=== PATIENT | female | born 1950 | race Caucasian/White ===

== ENCOUNTER 2018-12-17 21:56 | Observation (INO) | payer BC, OTHER ==
[~2018-12-17] VITALS: Ht 157.5 cm; Wt 81.8 kg
[2018-12-17 22:44] LABS: WHITE BLOOD COUNT 11.6 10^3/uL (4.3-11.0)
[2018-12-17 22:45] LABS: BASOPHILS # (AUTO) 0.1 10^3/uL (0.0-0.1); BASOPHILS % (AUTO) 0 % (0-10); EOSINOPHILS # (AUTO) 0.2 10^3/uL (0.0-0.3); EOSINOPHILS % (AUTO) 2 % (0-10); HEMATOCRIT 41 % (35-52); HEMOGLOBIN 13.8 G/DL (11.5-16.0); LYMPHOCYTES # (AUTO) 1.4 X 10^3 (1.0-4.0); LYMPHOCYTES % (AUTO) 12 % (12-44); MEAN CORPUSCULAR HEMOGLOBIN 31 PG (25-34); MEAN CORPUSCULAR HGB CONC 33 G/DL (32-36); MEAN CORPUSCULAR VOLUME 93 FL (80-99); MEAN PLATELET VOLUME 9.9 FL (7.4-10.4); MONOCYTES % (AUTO) 8 % (0-12); NEUTROPHILS # (AUTO) 8.9 X 10^3 (1.8-7.8); NEUTROPHILS % (AUTO) 77 % (42-75); PLATELET COUNT 214 10^3/uL (130-400); RED CELL DISTRIBUTION WIDTH 12.8 % (10.0-14.5)
[2018-12-17] MEDS ORDERED: KETOROLAC 30 MG/ML VIAL IVP ONE (22:45)
--- NOTE | 2018-12-17 22:46 | ED General ---
General Chief Complaint: General Problems/Pain Stated Complaint: GENERAL PAIN Nursing Triage Note: pt states right sided posterior rib pain with soa, had similar symptoms in 2006 and was diagnosed with pe. Nursing Sepsis Screen: No Definite Risk History of Present Illness Date Seen by Provider: Dec 17, 2018 Time Seen by Provider: 22:41 Initial Comments 68 yo female relates onset earlier this evening of right back pain pleuritic SOB pain radiates throughout R shoulder arnoldo-thorax etc. states identical to sx's when diagnosed with PE in 2000 took coumadin for 6 month and then has been on baby asa ever since has not been immobilized, not on hormones has been active had a YBARRA felt fatigued and cold 2d ago and hasn't felt well since ? pt claims subjective fever, denies cough denies any left chest pain no palpitations no syncope no abd pain no N V or D vitals normal O2 sats good but significant pleuritic pain Allergies and Home Medications Allergies Coded Allergies: Sulfa (Sulfonamide Antibiotics) (Verified Allergy, Unknown, 12/17/18) Patient Home Medication List Home Medication List Reviewed: Yes Review of Systems Review of Systems Constitutional: fever (subjective) EENTM: no symptoms reported Respiratory: short of breath Cardiovascular: chest pain Gastrointestinal: no symptoms reported Genitourinary: no symptoms reported Past Tjywyct-Iuxfuh-Oixplx Hx Patient Social History Alcohol Use: Denies Use Recreational Drug Use: No Smoking Status: Never a Smoker 2nd Hand Smoke Exposure: No Recent Foreign Travel: No Contact w/Someone Who Travel: No Recent Infectious Disease Expo: No Recent Hopitalizations: No Physical Abuse: No Sexual Abuse: No Mistreated: No Fear: No Seasonal Allergies Seasonal Allergies: No Past Medical History Surgeries: Yes Tubal Ligation Respiratory: Yes Pulmonary Embolism Cardiac: Yes Hypertension Neurological: Yes Genitourinary: No Gastrointestinal: Yes Gastroesophageal Reflux, Hemorrhoids Musculoskeletal: No Endocrine: No HEENT: No Cancer: No Psychosocial: No Integumentary: No Blood Disorders: No Physical Exam Vital Signs Vital Signs - First Documented 12/17/18 22:10 Temp 37.6 Pulse 84 Resp 18 B/P (MAP) 151/63 (92) Pulse Ox 97 O2 Delivery Room Air Capillary Refill : Less Than 3 Seconds Height, Weight, BMI Height: '" Weight: lbs. oz. kg; 32.00 BMI Method: General Appearance: Mild Distress (pleuritic chest pain) Eyes: Bilateral Eye PERRL, Bilateral Eye EOMI HEENT: Pharynx Normal, Moist Mucous Membranes Neck: Non Tender, Supple Respiratory: Lungs Clear, Normal Breath Sounds Cardiovascular: Regular Rate, Rhythm Gastrointestinal: Normal Bowel Sounds, Non Tender, Soft Extremity: No No Pedal Edema, No Calf Tenderness Progress/Results/Core Measures Suspected Sepsis Recent Fever Within 48 Hours: No Infection Criteria Present: None New/Unexplained Altered Menta: No Sepsis Screen: No Definite Risk SIRS Temperature: Pulse: 84 Respiratory Rate: 18 Laboratory Tests 12/17/18 22:30: White Blood Count 11.6H Blood Pressure 151 /63 Mean: 92 Laboratory Tests 12/17/18 22:30: Creatinine 1.03, Platelet Count 214, Total Bilirubin 0.3 Results/Orders Lab Results Laboratory Tests Test 12/17/18 22:30 Range/Units White Blood Count 11.6 H 4.3-11.0 10^3/uL Red Blood Count 4.46 4.35-5.85 10^6/uL Hemoglobin 13.8 11.5-16.0 G/DL Hematocrit 41 35-52 % Mean Corpuscular Volume 93 80-99 FL Mean Corpuscular Hemoglobin 31 25-34 PG Mean Corpuscular Hemoglobin Concent 33 32-36 G/DL Red Cell Distribution Width 12.8 10.0-14.5 % Platelet Count 214 130-400 10^3/uL Mean Platelet Volume 9.9 7.4-10.4 FL Neutrophils (%) (Auto) 77 H 42-75 % Lymphocytes (%) (Auto) 12 12-44 % Monocytes (%) (Auto) 8 0-12 % Eosinophils (%) (Auto) 2 0-10 % Basophils (%) (Auto) 0 0-10 % Neutrophils # (Auto) 8.9 H 1.8-7.8 X 10^3 Lymphocytes # (Auto) 1.4 1.0-4.0 X 10^3 Monocytes # (Auto) 1.0 0.0-1.0 X 10^3 Eosinophils # (Auto) 0.2 0.0-0.3 10^3/uL Basophils # (Auto) 0.1 0.0-0.1 10^3/uL D-Dimer 2.25 H 0.00-0.49 UG/ML Sodium Level 138 135-145 MMOL/L Potassium Level 4.4 3.6-5.0 MMOL/L Chloride Level 104 98-107 MMOL/L Carbon Dioxide Level 25 21-32 MMOL/L Anion Gap 9 5-14 MMOL/L Blood Urea Nitrogen 20 H 7-18 MG/DL Creatinine 1.03 0.60-1.30 MG/DL Estimat Glomerular Filtration Rate 53 BUN/Creatinine Ratio 19 Glucose Level 139 H 70-105 MG/DL Calcium Level 9.4 8.5-10.1 MG/DL Corrected Calcium 9.3 8.5-10.1 MG/DL Total Bilirubin 0.3 0.1-1.0 MG/DL Aspartate Amino Transf (AST/SGOT) 23 5-34 U/L Alanine Aminotransferase (ALT/SGPT) 21 0-55 U/L Alkaline Phosphatase 64 40-136 U/L Troponin I < 0.30 <0.30 NG/ML Total Protein 7.2 6.4-8.2 GM/DL Albumin 4.1 3.2-4.5 GM/DL My Orders Orders - JOANNE AZUL MD Ekg Tracing (12/17/18 22:19) Iv Heplock-Insert (Order) (12/17/18 22:19) Monitor-Rhythm Ecg Trace Only (12/17/18 22:19) Chest 1 View Ap/Pa Only (12/17/18 22:19) Cbc With Automated Diff (12/17/18 22:19) Comprehensive Metabolic Panel (12/17/18 22:19) Fibrin Degradation Products (12/17/18 22:19) Troponin I (12/17/18 22:19) Ketorolac Injection (Toradol Injection) (12/17/18 22:45) Enoxaparin Injection (Lovenox Injection) (12/17/18 23:30) Ct Angio Chest W (12/17/18 23:26) Iohexol Injection (Omnipaque 350 Mg/Ml 1 (12/17/18 23:30) Received Contrast (Hold Metformin- Contr (12/17/18 23:30) Sodium Chloride Flush (Catheter Flush Sy (12/17/18 23:30) Ns (Ivpb) (Sodium Chloride 0.9% Ivpb Bag (12/17/18 23:30) Medications Given in ED Current Medications Medications Dose Ordered Sig/Ellen Route Start Time Stop Time Status Last Admin Dose Admin Enoxaparin Sodium 80 mg ONCE ONCE SC 12/17/18 23:30 12/17/18 23:31 DC 12/17/18 23:49 80 MG Iohexol 150 ml ONCE ONCE IV 12/17/18 23:30 12/17/18 23:32 DC 12/17/18 23:55 125 ML Ketorolac Tromethamine 30 mg ONCE ONCE IVP 12/17/18 22:45 12/17/18 22:46 DC 12/17/18 23:05 30 MG Sodium Chloride 10 ml NEEDED PRN IV 12/17/18 23:30 12/17/18 23:55 10 ML Sodium Chloride 100 ml ONCE ONCE IV 12/17/18 23:30 12/17/18 23:32 DC 12/17/18 23:55 80 ML Vital Signs/I&O 12/17/18 22:10 Temp 37.6 Pulse 84 Resp 18 B/P (MAP) 151/63 (92) Pulse Ox 97 O2 Delivery Room Air Capillary Refill : Less Than 3 Seconds Blood Pressure Mean: 92 ECG Comment EKG sinus @79 no acute changes Departure Communication (Admissions) Time/Spoke to Admitting Phy: 00:46 acute PE will admit obs med surg Dr. Segovia O2 sats good pain much better after toradol has had 80 of lovenox subq Impression Primary Impression: Pulmonary embolism Qualified Codes: I26.99 - Other pulmonary embolism without acute cor pulmonale Disposition: ADMITTED INPATIENT Condition: Stable Admissions Decision to Admit Reason: Admit from ER (General) Decision to Admit/Date: Dec 18, 2018 Time/Decision to Admit Time: 00:50 Departure-Patient Inst. Referrals: NO,LOCAL PHYSICIAN (PCP/Family) Primary Care Physician JOANNE AZUL MD Dec 17, 2018 22:46
[2018-12-17 23:02] LABS: CHLORIDE 104 MMOL/L (98-107)
[2018-12-17 23:13] LABS: BILIRUBIN,TOTAL 0.3 MG/DL (0.1-1.0); CALCIUM 9.4 MG/DL (8.5-10.1); CARBON DIOXIDE 25 MMOL/L (21-32); GLUCOSE 139 MG/DL (70-105); POTASSIUM 4.4 MMOL/L (3.6-5.0); SODIUM 138 MMOL/L (135-145); TOTAL PROTEIN 7.2 GM/DL (6.4-8.2)
[2018-12-17 23:15] LABS: ALANINE AMINOTRANSFERASE 21 U/L (0-55); ALBUMIN 4.1 GM/DL (3.2-4.5); ALKALINE PHOSPHATASE 64 U/L (40-136); BUN/CREATININE RATIO 19; CREATININE SERUM 1.03 MG/DL (0.60-1.30); GFR ESTIMATED 53
[2018-12-17] MEDS ORDERED: NS 100 ML (IVPB) BAG IV ONE (23:30)
[2018-12-17] MEDS ORDERED: CATHETER FLUSH 10 ML SYR IV PRN (23:30)
[2018-12-17] MEDS ORDERED: ENOXAPARIN 80 MG/0.8 ML (LOVENOX) SYR SC ONE (23:30)
[2018-12-17] MEDS ORDERED: HOLD METFORMIN - RECEIVED CONTRAST 20 ML VIAL IV SCH (23:30)
[2018-12-17] MEDS ORDERED: IOHEXOL 350 MG/ML 150 ML (OMNIPAQUE 350) VIAL IV ONE (23:30)
[2018-12-18 02:20] VITALS: BP 159/96
[2018-12-18 02:25] VITALS: BP 159/96
[2018-12-18 04:00] VITALS: BP 152/72
[2018-12-18] MEDS ORDERED: NS IV 1000 ML 1,000 ML IV SCH (04:15)
[2018-12-18] MEDS ORDERED: KETOROLAC 15 MG/ML VIAL IVP PRN (04:15)
--- NOTE | 2018-12-18 06:53 | Diagnostic Imaging Report ---
Indication: Pain, shortness of air Comparison: None available Technique: Single radiograph of the chest dated 12/17/2018. Findings: The cardiac silhouette and pulmonary vasculature are within normal limits. The lungs are clear. No significant pleural effusion or pneumothorax. No acute osseous abnormality. Impression: No acute cardiopulmonary abnormality. Dictated by: Dictated on workstation # [id number]
[2018-12-18 08:00] VITALS: BP 139/84
--- NOTE | 2018-12-18 09:34 | Diagnostic Imaging Report ---
PROCEDURE: CT angiography of the chest with contrast. TECHNIQUE: Multiple contiguous axial images were obtained through the chest after uneventful bolus administration of intravenous contrast. 3D reconstructed CTA MIP acquisitions were also performed. Auto Exposure Controls were utilized during the CT exam to meet ALARA standards for radiation dose reduction. INDICATION: Rib pain, shortness of air Comparison: Radiographs from same day Findings: No significant adenopathy within the chest. No aneurysmal dilatation or dissection of the thoracic aorta. Tiny hiatal hernia. The heart is within normal limits in size. No pericardial effusion. No pleural effusion. No pneumothorax. Minimal left basilar scarring and/or atelectasis. Patchy groundglass opacities are noted within the right lower lobe. Evaluation for pulmonary emboli is limited secondary to motion. However, internal filling defects are identified within segmental and subsegmental branches of the right lower lobe pulmonary artery. No left-sided pulmonary emboli within limits of the examination. Punctate gallstone. Visualized upper abdomen is otherwise unremarkable. No acute osseous abnormality. Impression: Segmental and subsegmental pulmonary emboli within right lower lobe pulmonary arteries. Groundglass opacities within the right lung base. Although this may relate to underlying pneumonitis, given the pulmonary emboli within this distribution, this may relate to an early developing pulmonary infarction. Small hiatal hernia. I agree with preliminary report that there are pulmonary emboli, however preliminary report did not mention the possibility of an underlying developing pulmonary infarction. Report was faxed to [facility] by sherri at 9:40 am. POP Gibson, was also notified. Dictated by: Dictated on workstation # [id number]
[2018-12-18] MEDS ORDERED: RIVA15TA PO ×2 (10:53→12:05)
[2018-12-18] MEDS ORDERED: RIVA20TA PO ×2 (10:53→12:05)
--- NOTE | 2018-12-18 10:57 | Discharge Summary ---
Discharge Summary Hospital Course Problems/Dx: (1) Pulmonary embolism Status: Acute Qualifiers: Qualified Codes: I26.99 - Other pulmonary embolism without acute cor pulmonale Final Diagnosis: Acute pulmonary embolism Hospital Course Date of Admission: Dec 18, 2018 at 01:09 Admission Diagnosis : Acute pulmonary embolism Family Physician/Provider: FinaLocal Physician Date of Discharge: 12/18/18 Discharge Diagnosis: Acute pulmonary embolism Hospital Course: 68-year-old female with past medical history of pulmonary embolism almost 20 years ago and not currently on anticoagulation presented with right-sided pleuritic chest pain and was found to have acute pulmonary embolism. She was given 1 dose of IV Lovenox and was then transitioned to Xarelto. She will take Xarelto 15 mg twice daily for 3 weeks and then transition to Xarelto 20 mg daily. She does not have a primary care physician in the [facility] as she recently moved from [place]. She reports being up-to-date on all age appropriate cancer screening, but will reassess with her new primary care physician. Labs and Pending Lab Test: Laboratory Tests 12/17/18 22:30: White Blood Count 11.6H, Red Blood Count 4.46, Hemoglobin 13.8, Hematocrit 41, Mean Corpuscular Volume 93, Mean Corpuscular Hemoglobin 31, Mean Corpuscular Hemoglobin Concent 33, Red Cell Distribution Width 12.8, Platelet Count 214, Mean Platelet Volume 9.9, Neutrophils (%) (Auto) 77H, Lymphocytes (%) (Auto) 12, Monocytes (%) (Auto) 8, Eosinophils (%) (Auto) 2, Basophils (%) (Auto) 0, Neutrophils # (Auto) 8.9H, Lymphocytes # (Auto) 1.4, Monocytes # (Auto) 1.0, Eosinophils # (Auto) 0.2, Basophils # (Auto) 0.1, D-Dimer 2.25H, Sodium Level 138, Potassium Level 4.4, Chloride Level 104, Carbon Dioxide Level 25, Anion Gap 9, Blood Urea Nitrogen 20H, Creatinine 1.03, Estimat Glomerular Filtration Rate 53, BUN/Creatinine Ratio 19, Glucose Level 139H, Calcium Level 9.4, Corrected Calcium 9.3, Total Bilirubin 0.3, Aspartate Amino Transf (AST/SGOT) 23, Alanine Aminotransferase (ALT/SGPT) 21, Alkaline Phosphatase 64, Troponin I < 0.30, Total Protein 7.2, Albumin 4.1 Home Meds Active Xarelto (Rivaroxaban) 20 Mg Tablet 20 Mg PO DAILY 30 Days Xarelto (Rivaroxaban) 15 Mg Tablet 15 Mg PO BID 21 Days Assessment/Pt Instructions Take medications as prescribed. Establish care with new local primary care physician. Discharge Instructions Discharge Diet: No Restrictions Activity as Tolerated: Yes Discharge Physical Examination General Appearance: Alert, Oriented X3 HEENT: Atraumatic, EOMI Respiratory: Clear to Auscultation, Normal Air Movement Cardiovascular: Regular Rate, No Murmurs Abdominal: Normal Bowel Sounds, Soft, No Tenderness Extremities: No Edema, No Tenderness/Swelling Skin: No Rashes, No Breakdown Neuro: Normal Speech, Normal Tone Psych/Mental Status: Mental Status NL, Mood NL Allergies: Coded Allergies: Sulfa (Sulfonamide Antibiotics) (Verified Allergy, Unknown, 12/17/18) Discharge Summary Date of Admission Dec 18, 2018 at 01:09 Date of Discharge Discharge Date: Dec 18, 2018 Discharge Time: 10:56 Admission Diagnosis Acute pulmonary embolism Discharge Diagnosis (1) Pulmonary embolism Status: Acute Qualifiers: Qualified Codes: I26.99 - Other pulmonary embolism without acute cor pulmonale Clinical Quality Measures DVT/VTE Risk/Contraindication: Risk Factor Score Per Nursin RFS Level Per Nursing on Admit: 4+=Very High RUFUS CABALLERO MD Dec 18, 2018 10:57
[2018-12-18] MEDS ORDERED: OXYC-471 PO (12:05)
[2018-12-19] MEDS ORDERED: AMLO2.5T4 PO (10:01)
[2018-12-19] MEDS ORDERED: ASPI-983 PO (10:01)
[2018-12-19] MEDS ORDERED: RANI150T11 PO (10:01)
--- NOTE | 2018-12-19 13:28 | Diagnostic Imaging Report ---
PROCEDURE: US Venous Lower Ext Gee. INDICATION: Pulmonary embolism. EXAMINATIONS: Both grayscale and color Doppler imaging of the deep veins of the lower extremities were performed with waveform analysis. FINDINGS: There is no intraluminal filling defect. Normal continuous flow is seen throughout the deep venous systems of both legs, and there is normal response to augmentation. The deep veins compress normally. IMPRESSION: No ultrasound evidence of deep venous thrombosis in either lower extremity. Dictated by: Dictated on workstation # [id number]
[2018-12-19] MEDS ORDERED: RIVA15TA PO (14:06)
[2018-12-19] MEDS ORDERED: RIVA20TA PO (14:06)
== END 2018-12-18 10:45 | disposition home or self-care (01) ==
LOC: ER FS 21:58 → 4TH 21:59 → UNDOADMOB 12-18 01:09 → 4TH 12-18 01:09 → UNDODISOB 12-18 12:45
PROVIDERS: ADMIT Internal Medicine; ATTEND Internal Medicine
DX: I26.99 Other pulmonary embolism without acute cor pulmonale (principal); I10 Essential (primary) hypertension; K21.9 Gastro-esophageal reflux disease without esophagitis; Z88.2 Allergy status to sulfonamides; Z98.51 Tubal ligation status
CPT/HCPCS: 36415; 71045; 71275; 80053; 84484; 85025; 85379; 93005; 93970; 94760; 96372; 96374; G0378

== ENCOUNTER 2018-12-18 18:30 | Inpatient (IN) | payer BC ==
[~2018-12-18] VITALS: Ht 157.4 cm; Wt 83.5 kg
[~2018-12-18 18:30] MED LIST: OXYC-471 PO; RIVA15TA PO; RIVA20TA PO; fentaNYL INJECTION 100 MCG/2 ML AMP ONE
[2018-12-18] MEDS ORDERED: fentaNYL INJECTION 100 MCG/2 ML AMP IVP ONE (18:45)
[2018-12-18] MEDS ORDERED: PIPERACILLIN/TAZOBACTAM (BULK) 4.5 GM in NS (IVPB) 100 ML IV ONE (19:00)
[2018-12-18] MEDS ORDERED: VANCOMYCIN INJECTION 1,000 MG in NS (IVPB) 250 ML IV SCH (19:00)
--- NOTE | 2018-12-18 19:02 | Diagnostic Imaging Report ---
INDICATION: Pulmonary embolism and dyspnea. EXAMINATION: Upright AP view of the chest was obtained. COMPARISON: Study of one day earlier. FINDINGS: There is suboptimal inspiration with development of basilar atelectasis, greater on the right. No pneumothorax is seen. There is no evidence of focal consolidation. IMPRESSION: Developing basilar atelectasis which is greater on the right. Dictated by: Dictated on workstation # [id number]
[2018-12-18 19:04] LABS: HEMATOCRIT 40 % (35-52); HEMOGLOBIN 13.5 G/DL (11.5-16.0); MEAN CORPUSCULAR HEMOGLOBIN 31 PG (25-34); MEAN CORPUSCULAR HGB CONC 34 G/DL (32-36); MEAN CORPUSCULAR VOLUME 93 FL (80-99); MEAN PLATELET VOLUME 10.5 FL (7.4-10.4); PLATELET COUNT 216 10^3/uL (130-400); RED CELL DISTRIBUTION WIDTH 13.2 % (10.0-14.5); WHITE BLOOD COUNT 14.7 10^3/uL (4.3-11.0)
[2018-12-18 19:05] LABS: BASOPHILS # (AUTO) 0.1 10^3/uL (0.0-0.1); BASOPHILS % (AUTO) 0 % (0-10); EOSINOPHILS # (AUTO) 0.1 10^3/uL (0.0-0.3); EOSINOPHILS % (AUTO) 1 % (0-10); LYMPHOCYTES # (AUTO) 1.7 X 10^3 (1.0-4.0); LYMPHOCYTES % (AUTO) 11 % (12-44); MONOCYTES % (AUTO) 7 % (0-12); NEUTROPHILS # (AUTO) 11.8 X 10^3 (1.8-7.8); NEUTROPHILS % (AUTO) 80 % (42-75)
--- NOTE | 2018-12-18 19:06 | ED Respiratory ---
General Chief Complaint: Respiratory Problems Stated Complaint: SOA,CHEST PAIN Nursing Triage Note: Brought in by ambulance. Was diagnosed with PE last night and admitted to hospital. Got home today at 3 pm and has been having increasing pain and shortness of breath since arrival home. Is rating pain at 100/10 on the R lower side of chest and is described as stabbing. This is the same location of the pain as last night but just worse. History of Present Illness Date Seen by Provider: Dec 18, 2018 Time Seen by Provider: 19:01 Initial Comments The patient is a 68-year-old female with a history of hypertension and very recent diagnosis of acute segmental and subsegmental right-sided pulmonary embolism, released from [facility] earlier today on Xarelto. The patient returns via EMS with complaints of severely worsened right-sided lower lateral pleuritic chest wall discomfort which she states is the same pain that she had yesterday prior to diagnoses of her PE, just much worse. Patient was saturating about 92% on room air and is at 97% on 2 L. She is speaking comfortably in full sentences but is in some distress from chest discomfort. She is also noted to be febrile. No associated nausea or vomiting, diaphoresis, abdominal pain, flank pain, back pain, dysuria or hematuria, changes in bowel habits. Allergies and Home Medications Allergies Coded Allergies: Sulfa (Sulfonamide Antibiotics) (Verified Allergy, Unknown, 12/17/18) Home Medications Oxycodone HCl/Acetaminophen 1 Each Tablet, 1 EACH PO Q4H PRN for PAIN-SEVERE Prescribed by: RUFUS CABALLERO on 12/18/18 1205 Rivaroxaban 15 Mg Tablet, 15 MG PO BID Prescribed by: RUFUS CABALLERO on 12/18/18 1205 Rivaroxaban 20 Mg Tablet, 20 MG PO DAILY Prescribed by: RUFUS CABALLERO on 12/18/18 1205 Patient Home Medication List Home Medication List Reviewed: Yes Review of Systems Review of Systems Constitutional: see HPI All Other Systems Reviewed Negative Unless Noted: Yes Past Vpcoivw-Ryjmuj-Hasmtl Hx Past Med/Social Hx: Reviewed Nursing Past Med/Soc Hx Patient Social History Alcohol Use: Denies Use Recreational Drug Use: No 2nd Hand Smoke Exposure: No Recent Foreign Travel: No Contact w/Someone Who Travel: No Recent Infectious Disease Expo: No Recent Hopitalizations: No Physical Abuse: No Sexual Abuse: No Mistreated: No Fear: No Immunizations Up To Date Date of Pneumonia Vaccine: Jan 26, 2018 Seasonal Allergies Seasonal Allergies: No Past Medical History Surgeries: Yes Tubal Ligation Respiratory: Yes Pulmonary Embolism Currently Using CPAP: No Currently Using BIPAP: No Cardiac: Yes Hypertension Neurological: No Genitourinary: No Gastrointestinal: Yes Gastroesophageal Reflux, Hemorrhoids Musculoskeletal: No Endocrine: No HEENT: No Cancer: No Psychosocial: No Integumentary: No Blood Disorders: No Family Medical History Reviewed Nursing Family Hx Cardiovascular disease 19 FATHER, Onset:50's - 60 G8 BROTHER, Onset:40's - 50 Cataracts 19 FATHER Colon cancer 19 MOTHER, Onset:60 years & older G8 SISTER, Onset:60 years & older Glaucoma 19 FATHER, Onset:50's - 60 G8 BROTHER, Onset:60 years & older Physical Exam Vital Signs - First Documented 12/18/18 18:33 Temp 38.5 Pulse 98 Resp 20 B/P (MAP) 127/76 (93) Pulse Ox 98 Capillary Refill : Less Than 3 Seconds Height: '" Weight: lbs. oz. kg; 32.00 BMI Method: General Appearance: no apparent distress This is an older female appearing nontoxic and in no significant distress. She is intermittently tearful and holding her right lower lateral chest. Head is normocephalic and atraumatic. Neck is supple and nontender. Oropharynx is moist. Lungs are clear to auscultation at all stations. There is a normal S1 and S2 without rubs or gallops and capillary refill is appropriate, l ess 2 seconds globally. Abdomen is soft, nontender nondistended. Skin is warm and dry without cyanosis, clubbing or edema. Psychiatrically, the patient demonstrates appropriate mood and affect and is alert. Focused Exam Lactate Level 12/18/18 18:55: Lactic Acid Level 0.99 Lactic Acid Level Laboratory Tests Test 12/18/18 18:55 Lactic Acid Level 0.99 MMOL/L (0.50-2.00) Progress/Results/Core Measures Suspected Sepsis Recent Fever Within 48 Hours: No Infection Criteria Present: None New/Unexplained Altered Menta: No Sepsis Screen: No Definite Risk SIRS Temperature: Pulse: 98 Respiratory Rate: 20 Laboratory Tests 12/18/18 18:45: White Blood Count 14.7H Blood Pressure 127 /76 Mean: 93 12/18/18 18:55: Lactic Acid Level 0.99 Laboratory Tests 12/18/18 18:45: INR Comment 1.0, Platelet Count 216 Results/Orders Lab Results Laboratory Tests Test 12/18/18 18:45 12/18/18 18:55 Range/Units White Blood Count 14.7 H 4.3-11.0 10^3/uL Red Blood Count 4.30 L 4.35-5.85 10^6/uL Hemoglobin 13.5 11.5-16.0 G/DL Hematocrit 40 35-52 % Mean Corpuscular Volume 93 80-99 FL Mean Corpuscular Hemoglobin 31 25-34 PG Mean Corpuscular Hemoglobin Concent 34 32-36 G/DL Red Cell Distribution Width 13.2 10.0-14.5 % Platelet Count 216 130-400 10^3/uL Mean Platelet Volume 10.5 H 7.4-10.4 FL Neutrophils (%) (Auto) 80 H 42-75 % Lymphocytes (%) (Auto) 11 L 12-44 % Monocytes (%) (Auto) 7 0-12 % Eosinophils (%) (Auto) 1 0-10 % Basophils (%) (Auto) 0 0-10 % Neutrophils # (Auto) 11.8 H 1.8-7.8 X 10^3 Lymphocytes # (Auto) 1.7 1.0-4.0 X 10^3 Monocytes # (Auto) 1.0 0.0-1.0 X 10^3 Eosinophils # (Auto) 0.1 0.0-0.3 10^3/uL Basophils # (Auto) 0.1 0.0-0.1 10^3/uL Neutrophils % (Manual) 79 % Lymphocytes % (Manual) 11 % Monocytes % (Manual) 6 % Eosinophils % (Manual) 0 % Basophils % (Manual) 0 % Band Neutrophils 2 % Atypical Lymphocytes 2 % Prothrombin Time 13.3 12.2-14.7 SEC INR Comment 1.0 0.8-1.4 Activated Partial Thromboplast Time 30 24-35 SEC Lactic Acid Level 0.99 0.50-2.00 MMOL/L My Orders Orders - SANA TATE MD Fentanyl Injection (Sublimaze Injection (12/18/18 18:27) Cbc And Manual Diff (12/18/18 18:43) Comprehensive Metabolic Panel (12/18/18 18:43) Troponin I (12/18/18 18:43) Ekg Tracing (12/18/18 18:43) Probnp Fs (12/18/18 18:43) Chest 1 View Ap/Pa Only (12/18/18 18:43) Protime With Inr (12/18/18 18:43) Partial Thromboplastin Time (12/18/18 18:43) Fentanyl Injection (Sublimaze Injection (12/18/18 18:45) Lactic Acid Analyzer (12/18/18 18:52) Blood Culture (12/18/18 18:52) Ua Culture If Indicated (12/18/18 18:52) Vancomycin Injection (Vancomycin Injecti (12/18/18 19:00) Piperacillin/Tazobactam (Bulk) (Zosyn In (12/18/18 19:00) Lactic Acid Analyzer (12/18/18 18:57) Blood Culture (12/18/18 19:20) Medications Given in ED Current Medications Medications Dose Ordered Sig/Ellen Route Start Time Stop Time Status Last Admin Dose Admin Fentanyl Citrate 75 mcg ONCE ONCE IVP 12/18/18 18:45 12/18/18 18:46 DC 12/18/18 18:38 75 MCG Vital Signs/I&O 12/18/18 18:33 Temp 38.5 Pulse 98 Resp 20 B/P (MAP) 127/76 (93) Pulse Ox 98 Capillary Refill : Less Than 3 Seconds Blood Pressure Mean: 93 Progress Note : Time: 19:06 Progress Note 68-year-old female with known right sided segmental and subsegmental pulmonary embolism presents with hypoxia and severely worsened pleuritic chest discomfort in the aftermath of release from the hospital earlier today. Otherwise hemodynamically stable. Will give pain medication and check labs and EKG and repeat chest x-ray and will minimally plan for transfer back to [place] for admission for further care. Patient and family understand and agree with this plan of care. Patient is also febrile and would favor possible watershed infarct with associated fever as a cause for fever but will go ahead and cover her with broad-spectrum antibiotics as noted after cultures are drawn. Update 1931: Patient is feeling a little better after pain medication here in the emergency department. We are still pending some lab work at this time. She remains hematin M stable. We'll proceed with transfer back to [place] for inpatient telemetry admission. Dr. Caballero graciously accepts. ECG Initial ECG Impression Date: Dec 18, 2018 Comment Sinus rhythm, rate 92, no acute ST elevation or depression, S1 Q3 T3 pattern, AL 131, QRS 95, QTC 414, EP interpretation. Departure Impression Primary Impression: Acute pulmonary embolism Additional Impressions: Fever Hypoxia Disposition: ADMITTED INPATIENT Condition: Stable Transfer Method of Transfer: EMS Departure-Patient Inst. Referrals: NO,LOCAL PHYSICIAN (PCP/Family) Primary Care Physician SANA TATE MD Dec 18, 2018 19:06
[2018-12-18 19:17] LABS: ATYPICAL LYMPHOCYTES 2 %; BAND NEUTROPHILS 2 %; BASOPHILS % (MANUAL) 0 %; EOSINOPHILS % (MANUAL) 0 %; LYMPHOCYTES % (MANUAL) 11 %; MONOCYTES % (MANUAL) 6 %; NEUTROPHILS % (MANUAL) 79 %
[2018-12-18 19:25] LABS: PROTHROMBIN TIME PATIENT 13.3 SEC (12.2-14.7)
[2018-12-18 19:35] LABS: ALANINE AMINOTRANSFERASE 43 U/L (0-55); ALKALINE PHOSPHATASE 68 U/L (40-136); BILIRUBIN,TOTAL 0.5 MG/DL (0.1-1.0); BUN/CREATININE RATIO 22; CARBON DIOXIDE 24 MMOL/L (21-32); CHLORIDE 106 MMOL/L (98-107); GFR ESTIMATED 50; GLUCOSE 143 MG/DL (70-105); POTASSIUM 4.7 MMOL/L (3.6-5.0); SODIUM 140 MMOL/L (135-145)
[2018-12-18 19:36] LABS: ALBUMIN 3.8 GM/DL (3.2-4.5); TOTAL PROTEIN 7.3 GM/DL (6.4-8.2)
[2018-12-18] MEDS ORDERED: PIPERACILLIN/TAZO 4.5 GM VIAL (ZOSYN) IV ONE (19:43)
[2018-12-18] MEDS ORDERED: NS (IVPB) 100 ML ONE (19:44)
[2018-12-18] MEDS: fentaNYL INJECTION 100 MCG/2 ML AMP IVP PRN (19:50)
--- NOTE | 2018-12-18 20:45 | NUR ---
KASANDRA COTO admitted to room 410-1, with an admitting diagnosis of HYPOXIA, ACUTE PE on 12/18/18 from ED via EMS, accompanied by EMS STAFF. KASANDRA COTO introduced to surroundings, call light, bed controls, phone, TV, temperature control, lights, meal times, smoking policy, visitor policy, side rail policy, bathrooms and showers. Patient Rights given to patient in the handbook. KASANDRA COTO verbalizes understanding that [facility] is not responsible for the loss or damage to any personal effects or valuables that are kept in the patients posession during their hospitalization. KASANDRA COTO verbalizes understanding of Interdisciplinary Patient Education. Patient and/or family were informed about the Rapid Response Team and its purpose.
[2018-12-18 20:55] VITALS: BP 149/77
[2018-12-18] MEDS ORDERED: VANCOMYCIN 1000 MG/VIAL ONE (21:09)
[2018-12-18] MEDS ORDERED: NS (IVPB) 250 ML ONE (21:09)
[2018-12-18] MEDS ORDERED: ACETAMINOPHEN 325 MG TABLET PO PRN (21:15)
[2018-12-19] VITALS (7 sets, daily range): BP systolic 117–165; BP diastolic 70–81
[2018-12-19] MEDS: RIVAROXABAN 15 MG TABLET (XARELTO) PO SCH ×2 (08:06→21:13)
--- NOTE | 2018-12-19 09:11 | Pulmonary Consultation ---
DONAL TRISTAN,MED STUDENT 12/19/18 0911: History of Present Illness History of Present Illness Date of Consultation 12/19/18 09:06 Time Seen by Provider: 09:06 Date of Admission Reason for Visit: PE History of Present Illness Patient is a 68y/o female with history of HTN and a recent diagnosis of right sided PE. She presented to the [facility] ER with right sided chest pain Wednesday and was diagnosed with a PE in right lung. She was transfered to [facility] and then discharged yesterday. She was diagnosis She returned last night with worsening of her right sided chest. Her SpO2 was 92% on room in the ER and 97% on 2L. she is speaking comfortably in full sentences but is unable to take a deep breath because of sharp right sided chest pain. Patient says that she had a PE 20 years ago. ROS - admits to chl, fever, headache, chest pain, SOB and cough - denies N/V, abdominal pain, numbness, tingling, LE pain, Allergies and Home Medications Allergies Coded Allergies: Sulfa (Sulfonamide Antibiotics) (Verified Allergy, Unknown, 12/17/18) Home Medications Amlodipine Besylate 2.5 Mg Tablet, 2.5 MG PO DAILY, (Reported) Aspirin 81 Mg Tablet.dr, 81 MG PO DAILY, (Reported) Cefdinir 300 Mg Capsule, 300 MG PO BID Prescribed by: JORDAN HARRIS on 12/21/18 1045 Oxycodone HCl/Acetaminophen 1 Each Tablet, 1 EACH PO Q4H PRN for PAIN-SEVERE Prescribed by: RUFUS CABALLERO on 12/18/18 1205 Ranitidine HCl 150 Mg Tablet, 150 MG PO BID, (Reported) Rivaroxaban 1 Each Tab.ds.pk, 1 EACH PO UD 15mg by mouth twice daily x 21 days then 20mg by mouth daily Prescribed by: JORDAN HARRIS on 12/21/18 1045 Past Tbimksb-Zraxcq-Ygejkn Hx Past Med/Social Hx: Reviewed Nursing Past Med/Soc Hx Patient Social History Alcohol Use: Denies Use Recreational Drug Use: No 2nd Hand Smoke Exposure: No Recent Foreign Travel: No Contact w/Someone Who Travel: No Recent Infectious Disease Expo: No Recent Hopitalizations: No Physical Abuse: No Sexual Abuse: No Mistreated: No Fear: No Immunizations Up To Date Date of Pneumonia Vaccine: Jan 26, 2018 Seasonal Allergies Seasonal Allergies: No Past Medical History Surgeries: Yes Tubal Ligation Respiratory: Yes Pulmonary Embolism Currently Using CPAP: No Currently Using BIPAP: No Cardiac: Yes Hypertension Neurological: No Genitourinary: No Gastrointestinal: Yes Gastroesophageal Reflux, Hemorrhoids Musculoskeletal: No Endocrine: No HEENT: No Cancer: No Psychosocial: No Integumentary: No Blood Disorders: No Family Medical History Reviewed Nursing Family Hx Cardiovascular disease 19 FATHER, Onset:50's - 60 G8 BROTHER, Onset:40's - 50 Cataracts 19 FATHER Colon cancer 19 MOTHER, Onset:60 years & older G8 SISTER, Onset:60 years & older Glaucoma 19 FATHER, Onset:50's - 60 G8 BROTHER, Onset:60 years & older Review of Systems Date Seen by Provider: Dec 19, 2018 Time Seen by Provider: 09:17 Other See HPI Sepsis Event Evaluation Height, Weight, BMI Height: '" Weight: lbs. oz. kg; 33.70 BMI Method: Exam Exam Vital Signs Date Time Temp Pulse Resp B/P (MAP) Pulse Ox O2 Delivery O2 Flow Rate FiO2 12/19/18 07:00 91 12/19/18 03:18 37.5 82 18 138/77 (97) 97 Nasal Cannula 1.50 12/19/18 01:00 75 12/19/18 00:00 36.7 81 18 143/78 (99) 97 Nasal Cannula 1.50 12/18/18 22:31 95 12/18/18 21:00 Nasal Cannula 1.00 12/18/18 20:55 37.4 86 18 149/77 96 Nasal Cannula 3.00 12/18/18 19:55 71 16 134/82 97 Room Air 12/18/18 18:33 38.5 98 20 127/76 (93) 98 I & O 12/19/18 07:00 Intake Total 100 ml Balance 100 ml Height & Weight Height: '" Weight: lbs. oz. kg; 33.70 BMI Method: General Appearance: No Apparent Distress, Anxious, Obese Respiratory: Chest Non Tender, No Accessory Muscle Use, Decreased Breath Sounds (clear on the Left. Diminished on the R ) Cardiovascular: Regular Rate, Rhythm, No Edema, No Gallop, No JVD, No Murmur, Normal Peripheral Pulses Capillary Refill: Less Than 3 Seconds Peripheral Pulses: 2+ Dorsalis Pedis (R), 2+ Left Dors-Pedis (L), 2+ Radial Pulses (R), 2+ Radial Pulses (L) Gastrointestinal: normal bowel sounds, non tender, soft Extremity: Non Tender, No Calf Tenderness, No Pedal Edema Neurologic/Psychiatric: Alert, Oriented x3, No Motor/Sensory Deficits, Normal Mood/Affect Skin: Normal Color, Warm/Dry Results Lab Laboratory Tests 12/18/18 18:45 Assessment/Plan Assessment/Plan PE in the right lung - continue Xalteo but see if there is cheaper option - appears to be an unprovoked PE --> life time blood thinner HTN - no document HTN drug - start metoprolol Acid reflux - takes ranitidine - consider switching d/t ranitidine new association with cancer MIGUEL VELÁZQUEZ DO 12/19/18 1319: History of Present Illness History of Present Illness History of Present Illness 68yo with hx of HTN and recent dx of right PE presented to ED secondary to right sided CP. She was discharged yesterday from hospital she returned to ED secondary to worsening right CP. She was also hypoxic with Sp02 92% on RA. Allergies and Home Medications Allergies Coded Allergies: Sulfa (Sulfonamide Antibiotics) (Verified Allergy, Unknown, 12/17/18) Home Medications Amlodipine Besylate 2.5 Mg Tablet, 2.5 MG PO DAILY, (Reported) Aspirin 81 Mg Tablet.dr, 81 MG PO DAILY, (Reported) Cefdinir 300 Mg Capsule, 300 MG PO BID Prescribed by: JORDAN HARRIS on 12/21/18 1045 Oxycodone HCl/Acetaminophen 1 Each Tablet, 1 EACH PO Q4H PRN for PAIN-SEVERE Prescribed by: RUFUS CABALLERO on 12/18/18 1205 Ranitidine HCl 150 Mg Tablet, 150 MG PO BID, (Reported) Rivaroxaban 1 Each Tab.ds.pk, 1 EACH PO UD 15mg by mouth twice daily x 21 days then 20mg by mouth daily Prescribed by: JORDAN HARRIS on 12/21/18 1045 Past Mtwfvis-Teqpro-Umvbmm Hx Family Medical History Cardiovascular disease 19 FATHER, Onset:50's - 60 G8 BROTHER, Onset:40's - 50 Cataracts 19 FATHER Colon cancer 19 MOTHER, Onset:60 years & older G8 SISTER, Onset:60 years & older Glaucoma 19 FATHER, Onset:50's - 60 G8 BROTHER, Onset:60 years & older Review of Systems Constitutional: Fever, Chills, Sweats, Weakness, Malaise, Other Eyes: No: Pain, Vision change, Conjunctivae inflammation, Eyelid inflammation, Other, Redness ENT: No: Ear pain, Ear discharge, Nose pain, Nose discharge, Nose congestion, Mouth pain, Mouth swelling, Throat pain, Throat swelling, Other Respiratory: Cough, Dry, Shortness of breath, SOB with excertion; No: Wheezing, Hemoptysis, Pleuritic Pain, Sputum, Wheezing, Other Exam Exam General Appearance: No Apparent Distress, Anxious, Obese Respiratory: Chest Non Tender, No Accessory Muscle Use, Decreased Breath Sounds (clear on the Left. Diminished on the R ) Cardiovascular: Regular Rate, Rhythm, No Edema, No Gallop, No JVD, No Murmur, Normal Peripheral Pulses Gastrointestinal: normal bowel sounds, non tender, soft Extremity: Non Tender, No Calf Tenderness Neurologic/Psychiatric: Alert, Oriented x3, No Motor/Sensory Deficits, Normal Mood/Affect Skin: Normal Color, Warm/Dry Assessment/Plan Assessment/Plan Right sided PE - Pt has had a prior PE -Agree with Xalteo -Consider life long anticoagulation since this is her second PE. Pleuritic CP secondary to acute PE Pulmonary infiltration probably secondary to PE - -Check cultures -Monitor Supervisory-Addendum Brief Verification & Attestation Participated in pt care: history Personally performed: exam Care discussed with: Medical Student Procedures: n/a Verification and Attestation of Medical Student E/M Service A medical student performed and documented this service in my presence. I reviewed and verified all information documented by the medical student and made modifications to such information, when appropriate. I personally performed the physical exam and medical decision making. Miguel Velázquez, Jan 03, 2019,09:36 DONAL TRISTAN,MED STUDENT Dec 19, 2018 09:11 MIGUEL VELÁZQUEZ DO Dec 19, 2018 13:19
[2018-12-19] MEDS ORDERED: RANI150T11 PO (10:01)
[2018-12-19] MEDS ORDERED: AMLO2.5T4 PO (10:01)
[2018-12-19] MEDS ORDERED: ASPI-983 PO (10:01)
--- NOTE | 2018-12-19 10:02 | NUR ---
SPOKE WITH THE PATIENT ABOUT HER MEDICATIONS. SHE STATES SHE WAS RECENTLY DISCHARGED FROM HERE AND PRESCRIBED XARELTO AND A PAIN MEDICATION. SHE DID FILL THEM AND I LEFT THEM ON THE MED REC. SHE STATES PRIOR TO THAT DISCHARGE SHE WAS TAKING A BP MED, RANITIDINE BID, AND ASPIRIN 81MG DAILY OTC. I ADDED THEM TO THE MED REC AT THIS TIME AND VERIFIED THE PRESCRIPTIONS WITH THE EXT MED HX.
[2018-12-19] MEDS: fentaNYL INJECTION 100 MCG/2 ML AMP IVP PRN (11:10)
--- NOTE | 2018-12-19 11:11 | History & Physical-Hospitalist ---
History of Present Illness HPI/Chief Complaint Pt is a 68yoCF with a PMH of provoked PE in 2000 and HTN who presented to the ER yesterday due to chest pain. She was admitted 12/17 for acute right pulmonary embolus with underlying developing infarction. She was started on Xarelto and discharged home on 12/18. After she arrived home she developed worsening pain and difficulty taking deep breaths. She returned to the ER for evaluation and was admitted for intractable pain. She states the oxycodone has helped but has not had any since last night. She is visibly uncomfortable but able to speak in full sentences and does not seem short of breath. She denies any hormone use, long trip/travel, surgery, or immobilization recently. Source: patient Date Seen 12/19/18 Time Seen by a Provider: 12:57 Attending Physician Jennie Segovia MD PCP No,Local Physician Referring Physician Date of Admission Dec 18, 2018 at 19:00 Home Medications & Allergies Home Medications Reviewed patient Home Medication Reconciliation performed by pharmacy medication reconciliations solar installer technician and/or nursing. Patients Allergies have been reviewed. Allergies Allergies Coded Allergies Sulfa (Sulfonamide Antibiotics) (Verified Allergy, Unknown, 12/17/18) Past Lsxaryc-Thbrxe-Mbejkd Hx Past Med/Social Hx: Reviewed Nursing Past Med/Soc Hx Patient Social History Alcohol Use: Denies Use Recreational Drug Use: No 2nd Hand Smoke Exposure: No Recent Foreign Travel: No Contact w/other who traveled: No Recent Hopitalizations: No Recent Infectious Disease Expo: No Immunizations Up To Date Date of Pneumonia Vaccine: Jan 26, 2018 Seasonal Allergies Seasonal Allergies: No Past Medical History Surgeries: Tubal Ligation Currently Using CPAP: No Currently Using BIPAP: No Cardiac: Hypertension Gastrointestinal: Gastroesophageal Reflux, Hemorrhoids History of Blood Disorders: No Family History Reviewed Nursing Family Hx Cardiovascular disease 19 FATHER, Onset:50's - 60 G8 BROTHER, Onset:40's - 50 Cataracts 19 FATHER Colon cancer 19 MOTHER, Onset:60 years & older G8 SISTER, Onset:60 years & older Glaucoma 19 FATHER, Onset:50's - 60 G8 BROTHER, Onset:60 years & older Review of Systems Constitutional: no symptoms reported Respiratory: see HPI Cardiovascular: chest pain; No palpitations Gastrointestinal: no symptoms reported Genitourinary: no symptoms reported Musculoskeletal: no symptoms reported Skin: no symptoms reported Psychiatric/Neurological: No Symptoms Reported Physical Exam Physical Exam Vital Signs Vital Signs - First Documented 12/18/18 12/18/18 12/18/18 18:33 19:55 20:55 Temp 38.5 Pulse 98 Resp 20 B/P (MAP) 127/76 (93) Pulse Ox 98 O2 Delivery Room Air O2 Flow Rate 3.00 Capillary Refill : Less Than 3 Seconds Height, Weight, BMI Height: '" Weight: lbs. oz. kg; 33.70 BMI Method: General Appearance: WD/WN, Mild Distress (appears uncomfortable) HEENT: Moist Mucous Membranes; No Scleral Icterus (L), No Scleral Icterus (R) Respiratory: Lungs Clear, No Accessory Muscle Use, No Respiratory Distress Cardiovascular: Regular Rate, Rhythm, No Murmur Gastrointestinal: Normal Bowel Sounds, Non Tender, Soft Extremity: No Calf Tenderness, No Pedal Edema Neurologic/Psychiatric: Alert, Oriented x3 Skin: Normal Color, Warm/Dry Results Results/Procedures Labs Laboratory Tests 12/20/18 06:04 12/21/18 05:35 Patient resulted labs reviewed. Assessment/Plan Admission Diagnosis Acute Pulmonary Emboli with infarction Admission Status: Inpatient Order (span 2 midnights) Reason for Inpatient Admission: worsening pain, hypoxia, failed outpatient management Assessment and Plan Acute PE Pulmonary Infarction Continue Xarelto Pulm Consulted, yuan recchase echo ordered Toradol and Fentanyl for pain HTN Well controlled Diagnosis/Problems Diagnosis/Problems (1) Pulmonary embolism Status: Acute Qualifiers: Pulmonary embolism type: unspecified Chronicity: unspecified Acute cor pulmonale presence: without acute cor pulmonale Qualified Codes: I26.99 - Other pulmonary embolism without acute cor pulmonale Clinical Quality Measures DVT/VTE Risk/Contraindication: Risk Factor Score Per Nursin RFS Level Per Nursing on Admit: 4+=Very High JORDAN HARRIS MD Dec 19, 2018 11:11
[2018-12-19] MEDS ORDERED: LIDOCAINE 4% (SALONPAS) PATCH TOP PRN (11:15)
[2018-12-19] MEDS ORDERED: amLODIPine 2.5MG (NORVASC) TAB PO NR (13:30)
[2018-12-19] MEDS ORDERED: RIVA20TA PO (14:06)
[2018-12-19] MEDS ORDERED: RIVA15TA PO (14:06)
[2018-12-19] MEDS: KETOROLAC 15 MG/ML VIAL IVP PRN ×2 (14:21→21:36)
--- NOTE | 2018-12-19 19:02 | NUR ---
DR DÍAZ NOTIFIED OF PT COUGHING UP BRIGHT RED BLOOD, VERY MINIMAL. NO NEW ORDERS RECEIVED AT THIS TIME
[2018-12-19] MEDS ORDERED: ONDANSETRON 4 MG/2 ML (SDV) Z0FRAN IVP PRN (19:15)
[2018-12-19] MEDS ORDERED: NON-FORMULARY MEDICATION 1 EA EA (Ranitidine HCl 150 MG) PO SCH (21:00)
[2018-12-19] MEDS: FAMOTIDINE 20 MG (PEPCID) TABLET PO SCH (21:13)
[2018-12-19] MEDS: LIDOCAINE PATCH REMOVAL TP SCH (21:14)
[2018-12-20 04:20] VITALS: BP 137/75
[2018-12-20 06:16] LABS: HEMOGLOBIN 10.8 G/DL (11.5-16.0); MEAN PLATELET VOLUME 10.1 FL (7.4-10.4); RED CELL DISTRIBUTION WIDTH 13.3 % (10.0-14.5); WHITE BLOOD COUNT 13.6 10^3/uL (4.3-11.0)
[2018-12-20] MEDS: KETOROLAC 15 MG/ML VIAL IVP PRN ×3 (06:25→19:41)
[2018-12-20 06:41] LABS: CREATININE SERUM 0.98 MG/DL (0.60-1.30); POTASSIUM 4.3 MMOL/L (3.6-5.0)
--- NOTE | 2018-12-20 07:16 | Pulmonary Progress Note ---
DONAL TRISTAN,MED STUDENT 12/20/18 0716: Subjective Date Seen by a Provider: Dec 20, 2018 Time Seen by a Provider: 07:11 Subjective/Events-last exam Patient says that she was able to sleep through most of the night without any problems but that she is still having pain on her lower right chest wall. Pain matches where her PE is located. when asked about cough, patient said that she had a couple of episodes of hemoptysis, but only a little blood was present and then resolved with no hemoptysis seen in future sputum production. Patient was on room air when I was in room but was 89% Sp02 when ther nurse checked, patient aleks to 92% on 1L O2 ROS: admits: chest pains, chills, cough, hemoptysis, weakness denies: fever, headache, nausea, vomiting, SOB, numbness, tingling Sepsis Event Evaluation Height, Weight, BMI Height: '" Weight: lbs. oz. kg; 33.70 BMI Method: Focused Exam Lactate Level 12/18/18 18:55: Lactic Acid Level 0.99 Exam Exam Vital Signs Date Time Temp Pulse Resp B/P (MAP) Pulse Ox O2 Delivery O2 Flow Rate FiO2 12/20/18 04:20 37.6 88 20 137/75 (95) 96 Nasal Cannula 1.50 12/20/18 01:00 69 12/19/18 23:56 37.7 83 18 117/72 (87) 96 Nasal Cannula 1.50 12/19/18 21:56 Nasal Cannula 1.00 12/19/18 20:00 Nasal Cannula 1.00 12/19/18 19:56 37.2 86 20 146/81 (102) 95 Nasal Cannula 1.00 12/19/18 19:00 92 12/19/18 16:00 37.6 77 16 148/80 (102) 96 Nasal Cannula 1.00 12/19/18 13:00 80 12/19/18 12:54 38.1 86 18 165/70 (101) 95 Nasal Cannula 1.00 12/19/18 08:00 37.5 89 22 161/70 (100) 93 Nasal Cannula 1.00 12/19/18 08:00 93 Nasal Cannula 1.00 I & O 12/20/18 07:00 Intake Total 1540 ml Output Total 1600 ml Balance -60 ml Height & Weight Height: '" Weight: lbs. oz. kg; 33.70 BMI Method: General Appearance: No Apparent Distress, WD/WN, Anxious, Obese HEENT: Moist Mucous Membranes; No Scleral Icterus (L), No Scleral Icterus (R) Respiratory: Chest Non Tender, Normal Breath Sounds, No Accessory Muscle Use, Decreased Breath Sounds (dcreased in the RLL ) Cardiovascular: Regular Rate, Rhythm, No Edema, No Gallop, No JVD, No Murmur, Normal Peripheral Pulses Capillary Refill: Less Than 3 Seconds Peripheral Pulses: 2+ Dorsalis Pedis (R), 2+ Left Dors-Pedis (L), 2+ Radial Pulses (R), 2+ Radial Pulses (L) Gastrointestinal: normal bowel sounds, non tender, soft Extremity: Non Tender, No Calf Tenderness, No Pedal Edema Neurologic/Psychiatric: Alert, Oriented x3, No Motor/Sensory Deficits, Normal Mood/Affect Skin: Normal Color, Warm/Dry Results Lab Laboratory Tests 12/18/18 18:45 12/20/18 06:04 Assessment/Plan Assessment/Plan PE in the right lung - continue Xalteo - manage pain- with NSAIDs - on toroidal - appears to be an unprovoked PE --> life time anticoagulation recommended HTN - Amlodipine per home leukocytosis - likely d/t PE normocytic anemia Acid reflux MERRICK VELÁZQUEZ DO 12/20/18 1242: Subjective Subjective/Events-last exam Pt appears to be doing better. Still complains of pleuritic CP and SOB. She last coughed up blood small amount early this AM. Exam Exam General Appearance: No Apparent Distress, WD/WN, Anxious HEENT: Moist Mucous Membranes; No Scleral Icterus (L), No Scleral Icterus (R) Respiratory: Chest Non Tender, Normal Breath Sounds, No Accessory Muscle Use, Decreased Breath Sounds (dcreased in the RLL ) Cardiovascular: Regular Rate, Rhythm, No Edema, No Gallop, No JVD, No Murmur, Normal Peripheral Pulses Gastrointestinal: normal bowel sounds, non tender, soft Extremity: Non Tender, No Calf Tenderness, No Pedal Edema Neurologic/Psychiatric: Alert, Oriented x3, No Motor/Sensory Deficits, Normal Mood/Affect Skin: Normal Color, Warm/Dry Assessment/Plan Assessment/Plan PE in the right lung - continue Xalteo - Tordal PRN - appears to be an unprovoked PE --> life time anticoagulation recommended PNA with atelectasis -Continue Omnicef for 5-7days -IS leukocytosis - likely d/t PE normocytic anemia -Monitor -Continue pepcid Acid reflux Supervisory-Addendum Brief Verification & Attestation Participated in pt care: history Personally performed: exam, history Care discussed with: Medical Student Procedures: n/a Verification and Attestation of Medical Student E/M Service A medical student performed and documented this service in my presence. I reviewed and verified all information documented by the medical student and made modifications to such information, when appropriate. I personally performed the physical exam and medical decision making. Merrick Velázquez, Dec 21, 2018,09:08 DONAL TRISTAN,MED STUDENT Dec 20, 2018 07:16 MERRICK VELÁZQUEZ DO Dec 20, 2018 12:42
[2018-12-20 07:47] VITALS: BP 130/78
[2018-12-20] MEDS: RIVAROXABAN 15 MG TABLET (XARELTO) PO SCH ×2 (09:13→20:56)
[2018-12-20] MEDS: amLODIPine 2.5MG (NORVASC) TAB PO SCH (09:13)
[2018-12-20] MEDS ORDERED: CEFDINIR 300 MG (OMNICEF) CAP PO ONE (10:00)
--- NOTE | 2018-12-20 10:26 | Progress Note - Hospitalist ---
Subjective HPI/CC On Admission Date Seen by Provider: Dec 20, 2018 Time Seen by Provider: 10:00 Pt is a 68yoCF with a PMH of provoked PE in 2000 and HTN who presented to the ER yesterday due to chest pain. She was admitted 12/17 for acute right pulmonary embolus with underlying developing infarction. She was started on Xarelto and d ischarged home on 12/18. After she arrived home she developed worsening pain and difficulty taking deep breaths. She returned to the ER for evaluation and was admitted for intractable pain. She states the oxycodone has helped but has not had any since last night. She is visibly uncomfortable but able to speak in full sentences and does not seem short of breath. She denies any hormone use, long trip/travel, surgery, or immobilization recently. Subjective/Events-last exam Pt reports feeling slightly better today. Able to take some deep breath more comfortably but still having pain. Focused Exam Lactate Level 12/18/18 18:55: Lactic Acid Level 0.99 Objective Exam Vital Signs Vital Signs Date Time Temp Pulse Resp B/P (MAP) Pulse Ox O2 Delivery O2 Flow Rate FiO2 12/20/18 13:00 81 12/20/18 11:49 37.3 20 132/73 (92) 96 Nasal Cannula 1.50 Capillary Refill : Less Than 3 Seconds General Appearance: No Apparent Distress, WD/WN Respiratory: No Respiratory Distress, Crackles (right base) Cardiovascular: Regular Rate, Rhythm, No Murmur Neurologic/Psychiatric: Alert, Oriented x3 Results/Procedures Lab Laboratory Tests 12/20/18 06:04 Patient resulted labs reviewed. Assessment/Plan Assessment and Plan Assess & Plan/Chief Complaint Acute PE Pulmonary Infarction Continue Xarelto Pulm Consult, appreciate recs Hemoptysis Minimal amount Discussed with Dr Velázquez- will defer bronch at this time as likely due to anticoagulation and PE ?PNA Atelectasis on CXR yesterday Febrile overnight Will start on Omnicef and repeat CXR HTN Well controlled Clinical Quality Measures DVT/VTE Risk/Contraindication: Risk Factor Score Per Nursin RFS Level Per Nursing on Admit: 4+=Very High JORDAN HARRIS MD Dec 20, 2018 10:26
--- NOTE | 2018-12-20 10:42 | Diagnostic Imaging Report ---
INDICATION: Productive cough. TIME OF EXAM: 10:13 AM Correlation is made with prior chest from 12/18/2018. FINDINGS: The heart size is stable. There is some increasing patchy parenchymal density in the right base suggestive of pneumonia or atelectasis. There are also some increasing density in the left base, partially obscuring the left hemidiaphragm. No significant effusion is seen. There is no pneumothorax. Upper lung birch are clear. IMPRESSION: Increasing bibasilar densities since examination 2 days earlier, consistent with atelectasis or pneumonia. Dictated by: Dictated on workstation # [id number]
[2018-12-20 11:49] VITALS: BP 132/73
--- NOTE | 2018-12-20 15:31 | NUR ---
Initial Comparator Operator visit made by Chaplain Mercedes Jerry. Pt states she is going home tomorrow.
[2018-12-20 16:00] VITALS: BP 145/73
[2018-12-20 19:25] VITALS: BP 166/73
[2018-12-20] MEDS: CEFDINIR 300 MG (OMNICEF) CAP PO SCH (20:56)
[2018-12-20] MEDS: FAMOTIDINE 20 MG (PEPCID) TABLET PO SCH (20:56)
[2018-12-20] MEDS: LIDOCAINE PATCH REMOVAL TP SCH (20:57)
[2018-12-21 00:08] VITALS: BP 141/78
[2018-12-21 04:20] VITALS: BP 127/57
[2018-12-21 06:17] LABS: HEMOGLOBIN 11.4 G/DL (11.5-16.0); MEAN PLATELET VOLUME 10.3 FL (7.4-10.4); RED CELL DISTRIBUTION WIDTH 12.8 % (10.0-14.5); WHITE BLOOD COUNT 11.1 10^3/uL (4.3-11.0)
[2018-12-21] MEDS: CEFDINIR 300 MG (OMNICEF) CAP PO SCH (07:53)
[2018-12-21] MEDS: amLODIPine 2.5MG (NORVASC) TAB PO SCH (07:53)
[2018-12-21] MEDS: RIVAROXABAN 15 MG TABLET (XARELTO) PO SCH (07:53)
[2018-12-21 08:01] VITALS: BP 155/69
[2018-12-21] MEDS ORDERED: FAMOTIDINE 20 MG (PEPCID) TABLET PO SCH (09:00)
--- NOTE | 2018-12-21 09:09 | Pulmonary Progress Note ---
Subjective Time Seen by a Provider: 09:09 Sepsis Event Evaluation Height, Weight, BMI Height: '" Weight: lbs. oz. kg; 33.70 BMI Method: Focused Exam Lactate Level 12/18/18 18:55: Lactic Acid Level 0.99 Exam Exam Vital Signs Date Time Temp Pulse Resp B/P (MAP) Pulse Ox O2 Delivery O2 Flow Rate FiO2 12/21/18 08:01 36.4 79 20 155/69 (97) 92 Room Air 12/21/18 04:20 36.8 84 18 127/57 (80) 92 Room Air 12/21/18 01:00 83 12/21/18 00:08 36.2 81 18 141/78 (99) 91 Room Air 12/20/18 20:21 Nasal Cannula 1.00 12/20/18 19:25 37.2 87 20 166/73 (104) 93 Room Air 12/20/18 19:00 89 12/20/18 16:00 36.6 77 20 145/73 (97) 93 Room Air 12/20/18 13:00 81 12/20/18 11:49 37.3 80 20 132/73 (92) 96 Nasal Cannula 1.50 I & O 12/21/18 07:00 Intake Total 1720 ml Output Total 1200 ml Balance 520 ml Height & Weight Height: '" Weight: lbs. oz. kg; 33.70 BMI Method: General Appearance: No Apparent Distress, WD/WN, Anxious HEENT: Moist Mucous Membranes; No Scleral Icterus (L), No Scleral Icterus (R) Respiratory: Chest Non Tender, Normal Breath Sounds, No Accessory Muscle Use, Decreased Breath Sounds (dcreased in the RLL ) Cardiovascular: Regular Rate, Rhythm, No Edema, No Gallop, No JVD, No Murmur, Normal Peripheral Pulses Capillary Refill: Less Than 3 Seconds Peripheral Pulses: 2+ Dorsalis Pedis (R), 2+ Left Dors-Pedis (L), 2+ Radial Pulses (R), 2+ Radial Pulses (L) Gastrointestinal: normal bowel sounds, non tender, soft Extremity: Non Tender, No Calf Tenderness, No Pedal Edema Neurologic/Psychiatric: Alert, Oriented x3, No Motor/Sensory Deficits, Normal Mood/Affect Skin: Normal Color, Warm/Dry Results Lab Laboratory Tests 12/20/18 06:04 12/21/18 05:35 Assessment/Plan Assessment/Plan PE in the right lung - continue Xalteo - Tordal PRN - appears to be an unprovoked PE --> life time anticoagulation recommended PNA with atelectasis -Continue Omnicef for 5-7days -IS leukocytosis - likely d/t PE normocytic anemia -Monitor -Continue pepcid Acid reflux MERRICK DÍAZ DO Dec 21, 2018 09:09
[2018-12-21] MEDS ORDERED: CEFD300C3 PO (10:45)
[2018-12-21] MEDS ORDERED: RIVA1TAB PO (10:45)
--- NOTE | 2018-12-21 10:47 | Discharge Inst-Simple/Standard ---
Discharge Inst-Standard Reconcile Patient Problems Problems Reviewed?: Yes Discharge Medications New, Converted or Re-Newed RX: Transmitted to Pharmacy Patient Instructions/Follow Up Plan of Care/Instructions/FU: Please continue to take your medications as written. Please follow up with Dr Velázquez as scheduled and with a primary care doctor. Activity as Tolerated: Yes Discharge Diet: No Restrictions Return to The Hospital For: Worsening chest pain, shortness of breath, confusion, bleeding, if you feel you are getting worse. JORDAN HARRIS MD Dec 21, 2018 10:47 am
--- NOTE | 2018-12-21 10:57 | Discharge Summary ---
Diagnosis/Chief Complaint Date of Admission Dec 18, 2018 at 7:00 pm Date of Discharge Discharge Date: Dec 21, 2018 Admission Diagnosis Acute Pulmonary Emboli with infarction Primary Care No,Local Physician Discharge Diagnosis (1) Pulmonary embolism Status: Acute Discharge Summary Procedures/Consulations Dr John Goodwin Discharge Physical Exam Allergies: Coded Allergies: Sulfa (Sulfonamide Antibiotics) (Verified Allergy, Unknown, 12/17/18) Vitals & I&Os Vital Signs Date Time Temp Pulse Resp B/P (MAP) Pulse Ox O2 Delivery O2 Flow Rate FiO2 12/21/18 12:44 36.4 79 20 155/69 92 Room Air 1.00 General Appearance: No Apparent Distress, WD/WN Respiratory: Lungs Clear, No Respiratory Distress Cardiovascular: No Murmur Neurologic/Psychiatric: Alert, Oriented x3, Normal Mood/Affect Hospital Course Pt is a 68-year-old female who was admitted for chest pain due to an acute pulmonary embolism with pulmonary infarction. She was admitted on 12/18 and discharged home on several toe but her pain intensified prompting her to return and she was readmitted for pain control. She was started on Toradol with fentanyl for breakthrough pain and pain control was achieved. She had an uneventful hospital stay. Pulmonology was consulted and will see in follow up. this is believed to be an unprovoked PE and she may need lifelong anticoagulation following this. She does not currently have a primary care doctor so list was given to help her identify doctor to follow-up with. Labs (last 24 hrs) Laboratory Tests 12/21/18 05:35: White Blood Count 11.1H, Red Blood Count 3.69L, Hemoglobin 11.4L, Hematocrit 34L , Mean Corpuscular Volume 93, Mean Corpuscular Hemoglobin 31, Mean Corpuscular Hemoglobin Concent 33, Red Cell Distribution Width 12.8, Platelet Count 218, Mean Platelet Volume 10.3 Microbiology 12/18/18 Blood Culture - Preliminary, Resulted No growth Patient resulted labs reviewed. Pending Labs Discussion & Recommendations Discharge Planning: >30 minutes discharge planning Discharge Home Medications: Active Scripts Active Xarelto Starter Pack (Rivaroxaban) 1 Each Tab.ds.pk 1 Each PO UD 15mg by mouth twice daily x 21 days then 20mg by mouth daily Cefdinir 300 Mg Capsule 300 Mg PO BID Oxycodone-Acetaminophen 5-325 (Oxycodone HCl/Acetaminophen) 1 Each Tablet 1 Each PO Q4H PRN MDD 6 7 Days Reported Xarelto (Rivaroxaban) 15 Mg Tablet 15 Mg PO BID 21 Days Aspirin EC (Aspirin) 81 Mg Tablet.dr 81 Mg PO DAILY Amlodipine Besylate 2.5 Mg Tablet 2.5 Mg PO DAILY Ranitidine HCl 150 Mg Tablet 150 Mg PO BID Instructions to patient/family Please see electronic discharge instructions given to patient. Clinical Quality Measures DVT/VTE Risk/Contraindication: Risk Factor Score Per Nursin RFS Level Per Nursing on Admit: 4+=Very High Problem Qualifiers (1) Pulmonary embolism: Pulmonary embolism type: unspecified Chronicity: unspecified Acute cor pulmonale presence: without acute cor pulmonale Qualified Codes: I26.99 - Other pulmonary embolism without acute cor pulmonale JORDAN HARRIS MD Dec 21, 2018 10:57
--- NOTE | 2018-12-21 11:52 | NUR ---
CHARTING REVIEWED BY ME PRECEPTOR FOR [facility]
[2018-12-21 12:00] VITALS: BP 155/69
[2018-12-21 12:44] VITALS: BP 155/69
--- NOTE | 2018-12-26 13:53 | Physician Query Clarification ---
PQ-Conflicting Diagnosis Admission/Discharge Admission Date: Dec 18, 2018 at 19:00 Discharge Date: Dec 21, 2018 at 12:37 The medical record reflects the following clinical scenario: History/Risk Factors: Pulmonary embolism with infarction Clinical Findings: chest pain, CXR 12/20 bibasilar densities consistent with atelectasis vs pneumonia Treatment: IV Vancomycin, IV Zosyn, PO omnicef, IS Question: Do you agree with the impression of the pneumonia with atelectasis per Dr. Velázquez. Please document a response in Progress Note or Discharge Summary. 1. Yes 2. No 3. Other, with explanation of clinical findings 4. Clinically undetermined, no explanation for clinical findings. PHYSICIAN RESPONSE Do you agree w/Consulting Dx?: Yes Please remember a lack of response to the above will prompt a phone page by [facility]/Coding staff. In responding to this query, please exercise your independent professional judgment. The purpose of this communication is to more accurately reflect the complexity of your patients condition. The fact that a question is asked does not imply that any particular answer is desired or expected. Thank you for your timely response to this clarification. Requestors name: Petr THIS PHYSICIAN QUERY FORM IS A PERMANENT PART OF THE MEDICAL RECORD [employer] Dec 26, 2018 13:53 JORDAN HARRIS MD Dec 28, 2018 11:46
== END 2018-12-21 12:37 | disposition home or self-care (01) | DRG 175 ==
LOC: EDUNIT# 18:30 → ER FS 18:32 → 4TH 19:00 → UNDOADMOB 19:00 → 4TH 19:00 → OBSVTOIN 19:00 → INTOOBSV 19:00 → UNDODISIN 12-21 12:37
PROVIDERS: ADMIT Internal Medicine; ATTEND Internal Medicine
DX: I26.99 Other pulmonary embolism without acute cor pulmonale (principal); J18.9 Pneumonia, unspecified organism; J98.11 Atelectasis; I10 Essential (primary) hypertension; K21.9 Gastro-esophageal reflux disease without esophagitis; D64.9 Anemia, unspecified
CPT/HCPCS: 36415; 71045; 71275; 80048; 80053; 83605; 83880; 84145; 84484; 85007; 85025; 85027; 85379; 85610; 85730; 87040; 93005; 93306; 93970; 94760; 96372; 96374; 96375; 96376; G0378

== ENCOUNTER → 2019-01-25 | Outpatient (CLI) | payer BC ==
[~2019-01-25] MED LIST changes: +AMLO2.5T4 PO; +ASPI-983 PO; +CEFD300C3 PO; +RANI150T11 PO; +RIVA1TAB PO; +RT-ALBUTEROL SULF 2.5 MG/3 ML PRE-MIX VIAL INH ONE; -fentaNYL INJECTION 100 MCG/2 ML AMP ONE
--- NOTE | 2019-01-25 15:46 | Diagnostic Imaging Report ---
INDICATION: Hemoptysis and pneumonia. PA and lateral chest obtained at 03:31 p.m. and compared to 12/20/2018. Heart and mediastinal silhouette are normal in appearance. The infiltrate in the right lung base has almost completely resolved with some minimal residual increased markings which may represent scarring or minimal residual infiltrate. The left lung is clear. There is no pneumothorax or pleural fluid. IMPRESSION: Significant improvement in right basilar infiltrate compared to the prior study with some minimal residual scarring or residual infiltrate. There is no significant pleural fluid. Dictated by: Dictated on workstation # [id number]
== END ==
LOC: RT 15:17
PROVIDERS: ATTEND Nurse Practitioner Family
DX: J30.9 Allergic rhinitis, unspecified (principal); I26.99 Other pulmonary embolism without acute cor pulmonale; J18.9 Pneumonia, unspecified organism
CPT/HCPCS: 71046; 94060; 94726; 94729

== ENCOUNTER → 2019-04-19 | Outpatient (CLI) | payer BC ==
[~2019-04-19] MED LIST changes: -RT-ALBUTEROL SULF 2.5 MG/3 ML PRE-MIX VIAL INH ONE
--- NOTE | 2019-04-19 16:19 | Diagnostic Imaging Report ---
PROCEDURE: US non-OB pelvis comp/trans. TECHNIQUE: Multiple realtime grayscale images were obtained of the pelvis in various projections, endovaginally. Transabdominal imaging was also performed. INDICATION: Pelvic pressure. FINDINGS: The uterus measures 5.5 x 2.3 x 3.6 cm. Endometrial stripe is 4 mm. Myometrium and endometrium appear normal. Neither ovary could be located sonographically because of interposed bowel gas. IMPRESSION: Uterus appears normal. Neither ovary can be located sonographically. Dictated by: Dictated on workstation # [id number]
== END ==
LOC: RAD 14:46
PROVIDERS: ATTEND Obstetrics & Gynecology
DX: R10.2 Pelvic and perineal pain (principal)
CPT/HCPCS: 76830; 76856

== ENCOUNTER → 2019-04-27 | Outpatient (CLI) | payer BC ==
--- NOTE | 2019-04-27 14:37 | Diagnostic Imaging Report ---
PROCEDURE: CT abdomen and pelvis without contrast. TECHNIQUE: Multiple contiguous axial images were obtained through the abdomen and pelvis without the use of intravenous contrast. Auto Exposure Controls were utilized during the CT exam to meet ALARA standards for radiation dose reduction. INDICATION: Pelvis pain and pressure. Patient also complains of frequent urination for three months. FINDINGS: Imaging through the lung bases demonstrates some linear scarring or atelectasis in the posterior right lower lobe. The liver is unremarkable. There appears to be a tiny stone within the gallbladder. No biliary ductal dilatation is identified. The pancreas and spleen are unremarkable. No adrenal mass is detected. No definite renal calculi or hydronephrosis is detected. Aorta is nonaneurysmal. No central retroperitoneal or mesenteric lymphadenopathy is seen. Small and large bowel loops are normal in caliber. No free fluid or fluid collection is seen. The uterus and bladder are unremarkable. No pelvic lymphadenopathy is seen. IMPRESSION: 1. Cholelithiasis. 2. Right basilar atelectasis or scarring. 3. No acute feature in the abdomen or pelvis is identified. Dictated by: Dictated on workstation # [id number]
== END ==
LOC: RAD FS 14:12
PROVIDERS: ATTEND Obstetrics & Gynecology
DX: K80.20 Calculus of gallbladder without cholecystitis without obstruction (principal)
CPT/HCPCS: 74176

== ENCOUNTER → 2019-08-17 | Outpatient (CLI) | payer BC ==
[2019-08-17 14:39] LABS: CALCIUM 9.1 MG/DL (8.5-10.1); CREATININE SERUM 1.15 MG/DL (0.60-1.30); POTASSIUM 3.8 MMOL/L (3.6-5.0)
== END ==
LOC: LAB 13:39
PROVIDERS: ATTEND Nurse Practitioner Family
DX: I26.99 Other pulmonary embolism without acute cor pulmonale (principal); J30.9 Allergic rhinitis, unspecified
CPT/HCPCS: 36415; 80048

== ENCOUNTER → 2020-01-04 | Outpatient (CLI) | payer BC ==
[~2020-01-04] MED LIST changes: +ASPI-1238 PO; -ASPI-983 PO
--- NOTE | 2020-01-04 10:19 | Diagnostic Imaging Report ---
INDICATION: Left hip pain. TIME OF EXAM: 09:26 a.m. EXAMINATION: Two views of the left hip were obtained. FINDINGS: The femoroacetabular alignment is normal. The joint space is well-maintained. The femoral head and neck are intact. No fractures are identified. Left-sided superior and inferior pubic rami are intact. IMPRESSION: No acute bony abnormality is detected. Dictated by: Dictated on workstation # [id number]
== END ==
LOC: RAD FS 09:17
PROVIDERS: ATTEND Nurse Practitioner Family
DX: M25.552 Pain in left hip (principal)
CPT/HCPCS: 73502

== ENCOUNTER → 2020-05-20 | Outpatient (CLI) | payer BC, MEDICARE ==
[~2020-05-20] MED LIST changes: -OXYC-471 PO; +OXYC1TAB11 PO
[2020-05-20 11:04] LABS: CALCIUM 9.2 MG/DL (8.5-10.1); CREATININE SERUM 1.02 MG/DL (0.60-1.30); POTASSIUM 4.4 MMOL/L (3.6-5.0)
== END ==
LOC: LAB FS 09:49
PROVIDERS: ATTEND Nurse Practitioner Family
DX: Z79.01 Long term (current) use of anticoagulants (principal)
CPT/HCPCS: 36415; 80048

== ENCOUNTER → 2020-08-16 | Outpatient (CLI) | payer BC ==
[2020-08-16 10:44] LABS: BILIRUBIN,TOTAL 0.3 MG/DL (0.1-1.0); CALCIUM 9.4 MG/DL (8.5-10.1); CREATININE SERUM 1.03 MG/DL (0.60-1.30); POTASSIUM 4.5 MMOL/L (3.6-5.0); TOTAL PROTEIN 6.9 GM/DL (6.4-8.2)
== END ==
LOC: LAB FS 08:44
PROVIDERS: ATTEND Nurse Practitioner Family
DX: Z79.01 Long term (current) use of anticoagulants (principal)
CPT/HCPCS: 36415; 80053

== ENCOUNTER → 2020-09-16 | Outpatient (CLI) | payer BC ==
[~2020-09-16] MED LIST changes: +RT-ALBUTEROL SULF 2.5 MG/3 ML PRE-MIX VIAL IH ONE
[2020-09-16 10:34] LABS: HEMATOCRIT 42 % (35-52); HEMOGLOBIN 13.8 g/dL (11.5-16.0); MEAN CORPUSCULAR HEMOGLOBIN 31 pg (25-34); MEAN CORPUSCULAR HGB CONC 33 g/dL (32-36); MEAN CORPUSCULAR VOLUME 94 fL (80-99); PLATELET COUNT 197 10^3/uL (130-400); WHITE BLOOD COUNT 5.4 10^3/uL (4.3-11.0)
[2020-09-16 10:55] LABS: ALANINE AMINOTRANSFERASE 21 U/L (0-55); ALBUMIN 3.9 GM/DL (3.2-4.5); ALKALINE PHOSPHATASE 59 U/L (40-136); BILIRUBIN,DIRECT 0.2 MG/DL (0.0-0.3); BILIRUBIN,INDIRECT 0.3 MG/DL; BILIRUBIN,TOTAL 0.5 MG/DL (0.1-1.0); BUN/CREATININE RATIO 22; CREATININE SERUM 0.92 MG/DL (0.60-1.30); GFR ESTIMATED > 60; TOTAL PROTEIN 6.8 GM/DL (6.4-8.2)
== END ==
LOC: RT 10:11
PROVIDERS: ATTEND Nurse Practitioner Family
DX: Z79.01 Long term (current) use of anticoagulants (principal); Z86.711 Personal history of pulmonary embolism
CPT/HCPCS: 36415; 80076; 82565; 84520; 85027; 94010; 94726; 94729